=== PATIENT | female | born 1985 | race Caucasian/White ===

== ENCOUNTER → 2020-11-12 | Outpatient (CLI) | payer OTHER ==
[~2020-11-12] MED LIST: FEXO1TAB5 PO; PANT40TA54 PO; PRED20TA3 PO; VITAMIN D PO
== END | disposition home or self-care (01) ==
LOC: RAH 10:21
PROVIDERS: ATTEND Obstetrics & Gynecology
DX: N83.291 Other ovarian cyst, right side (principal)
CPT/HCPCS: 76856

== ENCOUNTER 2020-11-13 06:30 | Day surgery (SDC) | payer OTHER ==
[2020-11-08 12:30] LABS: PROTHROMBIN TIME 10.9 SEC (9.6-11.6)
[~2020-11-13] VITALS: Ht 154.9 cm; Wt 66.2 kg
[~2020-11-13 06:30] MED LIST changes: +SODIUM CHLORIDE 0.9% 1000ML 1,000 ML IV ONE
[2020-11-13 07:15] VITALS: BP 101/61
[2020-11-13] MEDS ORDERED: PROPOFOL 10 MG/ML 20ML VIAL IV ONE ×3 (08:44→08:58)
[2020-11-13] MEDS ORDERED: FENTANYL CITRATE PF 50 MCG/1 ML 2ML VIAL ONE (08:45)
[2020-11-13 09:15] VITALS: BP 71/32
[2020-11-13 09:20] VITALS: BP 95/54
[2020-11-13 09:25] VITALS: BP 94/58
[2020-11-13 09:30] VITALS: BP 101/58
[2020-11-13 09:45] VITALS: BP 97/50
== END 2020-11-13 10:00 | disposition home or self-care (01) ==
LOC: DAH 06:30 → ENDO 06:30
PROVIDERS: ATTEND Internal Medicine Gastroenterology
DX: K52.9 Noninfective gastroenteritis and colitis, unspecified (principal); Z20.822 Contact with and (suspected) exposure to COVID-19; K21.9 Gastro-esophageal reflux disease without esophagitis; K31.89 Other diseases of stomach and duodenum; K29.50 Unspecified chronic gastritis without bleeding; F17.200 Nicotine dependence, unspecified, uncomplicated; Z90.49 Acquired absence of other specified parts of digestive tract; Z79.01 Long term (current) use of anticoagulants; Z98.890 Other specified postprocedural states; Z72.89 Other problems related to lifestyle
CPT/HCPCS: 36415; 43239; 45380; 83993; 85610; 87507; A4215; A4221; A4222; A4223; A4606; A4620; A4657; A4663; C9803; J2704 ×3; J3010; J7030; U0003

== ENCOUNTER 2020-12-25 05:30 | Observation (INO) | payer OTHER ==
[2020-12-24 16:56] VITALS: BP 86/42
[2020-12-24 17:01] LABS: BASOPHILS % (AUTO) 0.4 % (0.0-5.0); EOSINOPHILS % (AUTO) 1.5 % (0.0-8.0); HEMATOCRIT 32.9 % (36-48); LYMPHOCYTES % (AUTO) 26.6 % (21.0-51.0); MEAN CORPUSCULAR HEMOGLOBIN 29.1 pg (27.0-33.0); MEAN CORPUSCULAR HGB CONC 33.4 g/dL (32.0-36.0); MONOCYTES % (AUTO) 7.1 % (3.0-13.0); PLATELET COUNT (AUTO) 331 K/uL (130-400); RED BLOOD CELL COUNT(AUTO) 3.78 MIL/uL (4.00-5.50); RED CELL DISTRIBUTION WIDTH 14.1 % (11.0-15.5); WHITE BLOOD COUNT (AUTO) 9.8 K/uL (4.8-10.8)
[~2020-12-25] VITALS: Ht 154.9 cm; Wt 67.0 kg
[2020-12-25] VITALS (22 sets, daily range): BP systolic 85–113; BP diastolic 49–76
[~2020-12-25 05:30] MED LIST changes: +COLE1TAB2 PO; +DICY10CA13 PO; -PRED20TA3 PO; -SODIUM CHLORIDE 0.9% 1000ML 1,000 ML IV ONE
[2020-12-25] MEDS ORDERED: LACTATED RINGERS 1000ML 1,000 ML IV ONE (08:49)
[2020-12-25] MEDS: CEFAZOLIN SODIUM 1 GM VIAL ONE ×2 (09:15→10:35)
[2020-12-25] MEDS ORDERED: MIDAZOLAM HCL 1 MG/ML 2ML VIAL ONE (10:08)
[2020-12-25] MEDS ORDERED: ROCURONIUM 10MG/1ML SYR 10 MG/ML ML ONE ×2 (10:17→11:17)
[2020-12-25] MEDS ORDERED: PROPOFOL 10 MG/ML 20ML VIAL IV ONE (10:17)
[2020-12-25] MEDS ORDERED: LIDOCAINE HCL MPF 1% 5ML VIAL ONE (10:17)
[2020-12-25] MEDS ORDERED: FENTANYL CITRATE PF 50 MCG/1 ML 2ML VIAL ONE (10:18)
[2020-12-25] MEDS ORDERED: GLYCOPYRROLATE 1 MG/5 ML SYRINGE ONE (12:22)
[2020-12-25] MEDS ORDERED: NEOSTIGMINE 5MG/5ML SYR IV ONE (12:23)
[2020-12-25] MEDS ORDERED: MEPERIDINE-PF 25 MG/ML SYG ONE ×3 (12:43→12:56)
[2020-12-25] MEDS ORDERED: BISACODYL 10 MG SUPP.RECT RC PRN (14:00)
[2020-12-25] MEDS ORDERED: IBUPROFEN 600 MG TABLET PO PRN (14:00)
[2020-12-25] MEDS ORDERED: PROMETHAZINE HCL 25 MG/ML 1ML AMPULE IM PRN (14:00)
[2020-12-25] MEDS ORDERED: ONDANSETRON HCL 4 MG/2 ML VIAL IVP PRN (14:00)
[2020-12-25] MEDS: PROMETHAZINE HCL 25 MG/ML 1ML AMPULE IM PRN ×3 (14:22→23:04)
[2020-12-25] MEDS: MEPERIDINE-PF 75 MG/ML SYG IM PRN ×3 (14:24→23:05)
[2020-12-25] MEDS: ACETAMINOPHEN-CODEINE 300/30MG TAB PO PRN (16:09)
[2020-12-25] MEDS: DEXTROSE 5 %-0.45 % NACL 1,000 ML IV PRN (23:03)
[2020-12-26 03:34] VITALS: BP 110/74
[2020-12-26] MEDS: PROMETHAZINE HCL 25 MG/ML 1ML AMPULE IM PRN (03:40)
[2020-12-26] MEDS: MEPERIDINE-PF 75 MG/ML SYG IM PRN (03:41)
[2020-12-26 05:28] LABS: HEMATOCRIT 30.4 % (36-48); MEAN CORPUSCULAR HEMOGLOBIN 28.5 pg (27.0-33.0); MEAN CORPUSCULAR HGB CONC 32.9 g/dL (32.0-36.0); MEAN CORPUSCULAR VOLUME 86.6 fL (79-99); RED BLOOD CELL COUNT(AUTO) 3.51 MIL/uL (4.00-5.50); RED CELL DISTRIBUTION WIDTH 13.9 % (11.0-15.5); WHITE BLOOD COUNT (AUTO) 14.3 K/uL (4.8-10.8)
[2020-12-26] MEDS: DEXTROSE 5 %-0.45 % NACL 1,000 ML IV PRN (07:00)
[2020-12-26 07:25] VITALS: BP 104/62
[2020-12-26] MEDS: ACETAMINOPHEN-CODEINE 300/30MG TAB PO PRN (07:43)
[2020-12-26] MEDS ORDERED: HYDROCODONE/ACETAMINOPHEN 5/325 MG TAB PO PRN (08:15)
[2020-12-26] MEDS ORDERED: ACETAMINOPHEN-CODEINE 300/30MG TAB PO PRN (08:15)
[2020-12-26] MEDS: FERROUS SULFATE 325 MG TABLET.DR PO SCH (08:45)
[2020-12-26] MEDS: DOCUSATE SODIUM 100 MG CAP PO PRN ×2 (08:45→20:55)
[2020-12-26] MEDS: SIMETHICONE 80 MG TAB.CHEW PO PRN ×2 (08:45→20:55)
[2020-12-26] MEDS: NITROFURANTOIN MONOHYD/M-CRYST 100 MG CAPSULE PO SCH ×2 (08:46→20:56)
[2020-12-26 11:28] VITALS: BP 99/57
[2020-12-26] MEDS: IBUPROFEN 800 MG TAB PO PRN (13:00)
[2020-12-26 15:38] VITALS: BP 107/68
[2020-12-26 19:46] VITALS: BP 105/59
[2020-12-26 23:41] VITALS: BP 111/65
[2020-12-27 03:28] VITALS: BP 98/64
[2020-12-27 07:19] VITALS: BP 95/55
[2020-12-27] MEDS: SIMETHICONE 80 MG TAB.CHEW PO PRN (09:32)
[2020-12-27] MEDS: NITROFURANTOIN MONOHYD/M-CRYST 100 MG CAPSULE PO SCH (09:32)
[2020-12-27] MEDS: DOCUSATE SODIUM 100 MG CAP PO PRN (09:32)
[2020-12-27] MEDS: FERROUS SULFATE 325 MG TABLET.DR PO SCH (09:32)
[2020-12-27] MEDS: IBUPROFEN 800 MG TAB PO PRN (09:34)
[2020-12-27 11:20] VITALS: BP 110/64
[2020-12-27] MEDS ORDERED: ACET1TAB25 PO (11:52)
[2020-12-27] MEDS ORDERED: MACR100 PO (11:52)
[2020-12-27] MEDS ORDERED: FERR325T22 PO (11:53)
== END 2020-12-27 12:45 | disposition home or self-care (01) ==
LOC: DAH 05:30 → DAHIP 05:31 → WSH 13:40
PROVIDERS: ADMIT Obstetrics & Gynecology; ATTEND Obstetrics & Gynecology
DX: N81.4 Uterovaginal prolapse, unspecified (principal); Z20.822 Contact with and (suspected) exposure to COVID-19; N39.3 Stress incontinence (female) (male); K46.9 Unspecified abdominal hernia without obstruction or gangrene; D64.9 Anemia, unspecified; F17.200 Nicotine dependence, unspecified, uncomplicated; Z90.49 Acquired absence of other specified parts of digestive tract
CPT/HCPCS: 36415 ×2; 57265; 57288; 58263; 84703; 85025; 85027; 86850; 86900; 86901; 96360; 96361 ×2; 96372 ×2; A4215; A4216; A4221; A4222; A4223 ×2; A4335; A4344; A4351; A4510; A4600; A4606; A4663; A4930; A5113; A6260; C1771; C9803; G0168; G0378 ×52; J0690; J2175 ×7; J2250; J2550 ×4; J2704; J2710; J3010; J3490 ×2; J7030; J7120; U0003; 96376

== ENCOUNTER → 2021-06-06 | Outpatient (CLI) | payer OTHER ==
[~2021-06-06] MED LIST changes: +ACET1TAB25 PO; +FERR325T22 PO; +MACR100 PO
[2021-06-06 15:51] LABS: BASOPHILS % (AUTO) 0.3 % (0.0-5.0); EOSINOPHILS % (AUTO) 0.1 % (0.0-8.0); HEMATOCRIT 41.1 % (36-48); LYMPHOCYTES % (AUTO) 10.6 % (21.0-51.0); MEAN CORPUSCULAR HEMOGLOBIN 33.5 pg (27.0-33.0); MEAN CORPUSCULAR HGB CONC 34.5 g/dL (32.0-36.0); MEAN CORPUSCULAR VOLUME 96.9 fL (79-99); MONOCYTES % (AUTO) 4.6 % (3.0-13.0); NEUTROPHILS % (AUTO) 83.7 % (40.0-77.0); PLATELET COUNT (AUTO) 380 K/uL (130-400); RED BLOOD CELL COUNT(AUTO) 4.24 MIL/uL (4.00-5.50); RED CELL DISTRIBUTION WIDTH 13.7 % (11.0-15.5); WHITE BLOOD COUNT (AUTO) 22.8 K/uL (4.8-10.8)
[2021-06-06 16:06] LABS: CARBON DIOXIDE 26 mmol/L (21-32); CHLORIDE 103 mmol/L (101-111); CREATININE 0.9 mg/dL (0.5-1.5); GLOMERULAR FILTR. RATE CALC 76 mL/min (>60); GLUCOSE,RANDOM 116 mg/dL (70-105); POTASSIUM 4.4 mmol/L (3.5-5.1); SODIUM SERUM 141 mmol/L (136-145); UREA NITROGEN, BLOOD 17 mg/dL (7-18)
[2021-06-06 16:11] LABS: ALANINE AMINOTRANSFERASE 24 U/L (12-78); ALBUMIN 4.3 g/dL (3.5-5.0); ASPARTATE AMINOTRANSFERASE 10 U/L (10-37); BILIRUBIN,TOTAL 0.2 mg/dL (0.2-1.0); LACTATE DEHYDROGENASE 144 U/L (81-234); TOTAL PROTEIN, SERUM 7.7 g/dL (6.0-8.3)
[2021-06-06 16:58] LABS: CRP QUANTITATIVE < 2.00 mg/L (0.00-9.0); ERYTHROCYTE SEDIMENTATION RATE 5 MM/HR (0-20)
== END | disposition home or self-care (01) ==
LOC: EDH 15:02
PROVIDERS: ATTEND Internal Medicine
DX: U07.1 COVID-19 (principal); J20.9 Acute bronchitis, unspecified; R53.83 Other fatigue
CPT/HCPCS: 36415; 80053; 82728; 83615; 85025; 85378; 85651; 86140

== ENCOUNTER → 2021-06-25 | Outpatient (CLI) | payer OTHER ==
[2021-06-25 10:21] LABS: BASOPHILS % (AUTO) 0.4 % (0.0-5.0); EOSINOPHILS % (AUTO) 1.7 % (0.0-8.0); HEMATOCRIT 40.5 % (36-48); LYMPHOCYTES % (AUTO) 14.7 % (21.0-51.0); MEAN CORPUSCULAR HGB CONC 33.1 g/dL (32.0-36.0); MEAN CORPUSCULAR VOLUME 99.8 fL (79-99); MONOCYTES % (AUTO) 4.9 % (3.0-13.0); NEUTROPHILS % (AUTO) 77.8 % (40.0-77.0); PLATELET COUNT (AUTO) 303 K/uL (130-400); RED BLOOD CELL COUNT(AUTO) 4.06 MIL/uL (4.00-5.50); RED CELL DISTRIBUTION WIDTH 13.2 % (11.0-15.5); WHITE BLOOD COUNT (AUTO) 10.8 K/uL (4.8-10.8)
[2021-06-25 11:02] LABS: ALANINE AMINOTRANSFERASE 31 U/L (12-78); ALBUMIN 3.9 g/dL (3.5-5.0); ASPARTATE AMINOTRANSFERASE 17 U/L (10-37); BILIRUBIN,TOTAL 0.5 mg/dL (0.2-1.0); CARBON DIOXIDE 31 mmol/L (21-32); CHLORIDE 104 mmol/L (101-111); CREATINE KINASE, TOTAL 27 U/L (21-232); CREATININE 0.8 mg/dL (0.5-1.5); GLOMERULAR FILTR. RATE CALC 87 mL/min (>60); GLUCOSE,RANDOM 90 mg/dL (70-105); POTASSIUM 3.9 mmol/L (3.5-5.1); SODIUM SERUM 139 mmol/L (136-145); THYROID STIMULATING HORMONE 1.68 uIU/mL (0.36-3.74); TOTAL PROTEIN, SERUM 7.1 g/dL (6.0-8.3); UREA NITROGEN, BLOOD 13 mg/dL (7-18)
[2021-06-25 11:44] LABS: ERYTHROCYTE SEDIMENTATION RATE 2 MM/HR (0-20)
[2021-06-25 12:04] LABS: CRP QUANTITATIVE < 2.00 mg/L (0.00-9.0)
== END | disposition home or self-care (01) ==
LOC: LAB 09:54
PROVIDERS: ATTEND Internal Medicine
DX: R53.83 Other fatigue (principal); Z86.16 Personal history of COVID-19
CPT/HCPCS: 36415; 80053; 82550; 84443; 84484; 85025; 85378; 85651; 86140

== ENCOUNTER → 2024-03-16 | Outpatient (CLI) | payer BC ==
[~2024-03-16] MED LIST changes: +ACET-2079 PO; -ACET1TAB25 PO; -DICY10CA13 PO; +DICY10CA2 PO
== END | disposition home or self-care (01) ==
LOC: RAH 10:33
PROVIDERS: ATTEND Internal Medicine
DX: J45.909 Unspecified asthma, uncomplicated (principal)
CPT/HCPCS: 71046